=== PATIENT | female | born 1975 | race Caucasian/White ===

== ENCOUNTER 2020-02-24 14:33 | Outpatient (REF) | payer OTHER, SELFPAY | END 2020-02-24 14:34 | disposition home or self-care (01) | LOC: HO.LAB 14:33 | PROVIDERS: Visit Provider Nurse Practitioner Family | DX: Z13.89 Encounter for screening for other disorder (principal) ==

== ENCOUNTER 2020-02-24 16:47 | Outpatient (REF) | payer OTHER, SELFPAY | END 2020-02-24 16:48 | disposition home or self-care (01) | LOC: HO.LNP 16:47 | PROVIDERS: Visit Provider Nurse Practitioner Family | DX: N39.0 Urinary tract infection, site not specified (principal) | CPT/HCPCS: 87086; U0003 ==

== ENCOUNTER 2020-02-25 09:07 | Outpatient (REF) | payer OTHER, SELFPAY ==
[2020-02-25 11:35] LABS: Estimated Average Glucose 140 mg/dL; Hemoglobin A1c % 6.5 %
[2020-02-25 12:34] LABS: Alanine Aminotransferase 15 U/L (0-31); Anion Gap 17 (12-20); Aspartate Amino Transferase 14 U/L (5-31); Blood Urea Nitrogen 18 mg/dL (9-16); Calcium 8.9 mg/dL (8.4-10.2); Carbon Dioxide 22 mmol/L (22-29); Chloride 104 mmol/L (96-108); Cholesterol 224 mg/dL; Estimated Glomerular Filt Rate > 60; Glucose Fasting 112 mg/dL (60-99); HDL Cholesterol 41 mg/dL; LDL Cholesterol Calculated 154 mg/dl; Potassium 4.2 mmol/l (3.3-5.1); Sodium 139 mmol/L (135-145); Triglycerides 147 mg/dL
[2020-02-25 12:43] LABS: Vitamin D 25-OH Total 49.2 ng/mL (>30)
== END 2020-02-25 09:08 | disposition home or self-care (01) ==
LOC: HO.HMGCLDS 09:07
PROVIDERS: PCP Internal Medicine; Visit Provider Internal Medicine
DX: F33.8 Other recurrent depressive disorders (principal); I10 Essential (primary) hypertension; E55.9 Vitamin D deficiency, unspecified; F41.9 Anxiety disorder, unspecified; E78.1 Pure hyperglyceridemia; R73.01 Impaired fasting glucose
CPT/HCPCS: 80048; 80061; 82306; 83036; 84450; 84460

== ENCOUNTER 2020-06-03 09:27 | Outpatient (REF) | payer OTHER, SELFPAY ==
[2020-06-03 11:08] LABS: MANUAL DIFF FLAG NO
[2020-06-03 11:19] LABS: Basophils Percent Auto 0.4 % (0-2); Eosinophils Absolute Auto 0.6 X10*3/uL (0.0-0.4); Eosinophils Percent Auto 6.4 % (0-4); Hemoglobin 13.6 g/dl (12.0-16.0); Imm Gran Abs Auto 0.09 X10*3/uL (0.00-0.03); Imm Gran Pct Auto 0.9 % (0.0-0.4); Lymphocytes Absolute Auto 2.7 X10*3/uL (1.2-4.9); Lymphocytes Percent Auto 27.4 % (20-40); Mean Corpuscular HGB Conc 32.4 g/dl (31.0-35.0); Mean Corpuscular Hemoglobin 30.9 pg (27.0-33.0); Mean Corpuscular Volume 95.5 fL (80-98); Mean Platelet Volume 10.3 fL (9.4-12.3); Monocytes Absolute Auto 0.6 X10*3/uL (0.1-1.2); Monocytes Percent Auto 6.5 % (2-11); Neutrophils Absolute Auto 5.7 X10*3/uL (2.0-8.3); Neutrophils Percent Auto 58.4 % (45-73); Platelet Count 297 X10*3/uL (160-400); Red Cell Distribution Width 13.7 % (11.0-16.0); White Blood Count 9.8 X10*3/uL (4.8-10.8)
[2020-06-03 11:53] LABS: Alanine Aminotransferase 22 U/L (0-31); Albumin Level 4.1 g/dL (3.5-5.0); Alkaline Phosphatase 101 U/L (39-117); Anion Gap 14 (12-20); Aspartate Amino Transferase 19 U/L (5-31); Bilirubin Total 0.3 mg/dL (0.0-1.0); Blood Urea Nitrogen 17 mg/dL (9-16); Calcium 9.2 mg/dL (8.4-10.2); Carbon Dioxide 24 mmol/L (22-29); Chloride 104 mmol/L (96-108); Cholesterol 211 mg/dL; Estimated Glomerular Filt Rate > 60; Glucose Fasting 134 mg/dL (60-99); HDL Cholesterol 42 mg/dL; LDL Cholesterol Calculated 131 mg/dl; Potassium 4.1 mmol/L (3.3-5.1); Sodium 138 mmol/L (135-145); Total Protein 7.4 g/dL (6.5-8.0); Triglycerides 191 mg/dL
[2020-06-03 11:59] LABS: TSH reflex Free T4 2.24 uIU/mL (0.32-4.0); Vitamin D 25-OH Total 56.8 ng/mL (>30)
[2020-06-03 12:29] LABS: Folate 6.7 ng/mL (> or = 4.0); Vitamin B12 317 pg/mL (200-900)
== END 2020-06-03 09:28 | disposition home or self-care (01) ==
LOC: HO.HMGCLDS 09:27
PROVIDERS: PCP Internal Medicine; Visit Provider Internal Medicine
DX: E66.01 Morbid (severe) obesity due to excess calories (principal); M25.471 Effusion, right ankle; M25.472 Effusion, left ankle; M25.474 Effusion, right foot; M25.475 Effusion, left foot; R20.0 Anesthesia of skin; R20.2 Paresthesia of skin; K21.9 Gastro-esophageal reflux disease without esophagitis; R14.0 Abdominal distension (gaseous)
CPT/HCPCS: 36415; 80053; 80061; 82306; 82607; 82746; 84443; 85025

== ENCOUNTER 2020-06-18 10:45 | Outpatient (REF) | payer OTHER, SELFPAY ==
--- NOTE | ~2020-06-18 | XR_ITS ---
EXAMINATION: XR CERVICAL SPINE CLINICAL INFORMATION: Neck pain COMPARISON: None TECHNIQUE: 3 views of the cervical spine were obtained. FINDINGS: Bone alignment is normal. No fracture or dislocation is seen. There is mild degenerative spondylosis at C4-C5 and C6-C7. Disc spaces are normal. Prevertebral soft tissues are normal. 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 XR/XR cervical spine 2V IMPRESSION: Mild degenerative spondylosis at C4-C5 and C6-C7.
== END 2020-06-18 10:46 | disposition home or self-care (01) ==
LOC: HO.HMGCX 10:45
PROVIDERS: PCP Internal Medicine; Visit Provider Internal Medicine
DX: M54.2 Cervicalgia (principal)
CPT/HCPCS: 72040

== ENCOUNTER → 2020-06-23 09:38 | Outpatient (BNVA) | payer OTHER, SELFPAY | PROVIDERS: PCP Internal Medicine; Visit Provider Surgery Vascular Surgery | DX: I83.11 Varicose veins of right lower extremity with inflammation (principal) | CPT/HCPCS: 99202 ==

== ENCOUNTER → 2020-06-25 13:17 | Outpatient (BNVA) | payer OTHER, SELFPAY | PROVIDERS: PCP Internal Medicine; Visit Provider Physician Assistant ==

== ENCOUNTER 2020-07-07 07:56 | Outpatient (REF) | payer OTHER, SELFPAY ==
--- NOTE | ~2020-07-07 | US_ITS ---
EXAMINATION: RIGHT and LEFT LOWER EXTREMITY VENOUS ULTRASOUND (Reflux Exam) CLINICAL INDICATION: leg pain and varicose veins. COMPARISON: None. TECHNIQUE: Color flow triplex imaging and compression Doppler was performed to evaluate both the deep and the superficial systems bilaterally. To evaluate the superficial system, the examination was performed in the upright position. Color-flow Doppler ultrasound and compression ultrasound were utilized. In addition, maneuvers were utilized to demonstrate reflux. FINDINGS: 1. DEEP VENOUS ULTRASOUND OF THE RIGHT LOWER EXTREMITY: Respiratory variation, normal compression and augmented flow are noted in the right common femoral vein as well as the right popliteal vein and there is no evidence of deep venous thrombosis at these locations. There is no evidence of reflux in the deep system in either the common femoral vein or the popliteal vein. There is no evidence of a Juarez's cyst. 2. SUPERFICIAL ULTRASOUND WITH DOPPLER OF RIGHT LOWER EXTREMITY: The right great saphenous vein at the saphenofemoral junction measures 8 mm, at the mid thigh 7 mm, iqmdl-dfq-uhgz 4 mm, utgdl-wpc-pzqz 3 mm, at mid calf 3 mm and at the ankle measures 3 mm. There is no reflux demonstrated in the right great saphenous vein. The right small saphenous vein measures 3 mm and shows no reflux. There is an accessory medial greater saphenous vein that measures 6 mm and does not demonstrate reflux. There are small perforators in the calf and small varicosities in the thigh that measure between 1 and 3 mm and do not demonstrate reflux. 3. DEEP VENOUS ULTRASOUND OF THE LEFT LOWER EXTREMITY: Respiratory variation, normal compression and augmented flow are noted in the left common femoral vein as well as the left popliteal vein and there is no evidence of deep venous thrombosis at these locations. There is no evidence of reflux in the deep system in either the common femoral vein or the popliteal vein. . There is no evidence of a Juarez's cyst. 4. SUPERFICIAL ULTRASOUND WITH DOPPLER OF LEFT LOWER EXTREMITY: Left great saphenous vein at the saphenofemoral junction measures 8 mm, at the mid thigh 4 mm, owvpa-exd-yeqm 5 mm, pzbdo-cyj-cfhi 2 mm, at mid calf 2 mm and at the ankle measures 2 mm. There is no reflux demonstrated in the left great saphenous vein. The left small saphenous vein measures 3 mm and shows no reflux. Recent accessory medial greater saphenous vein that measures 6 mm and does not demonstrate reflux. There is a varicosity in the mid thigh that measures 1 mm and demonstrates 2.7 second reflux. There are larger varicosities in the proximal thigh measuring 3 mm and mid calf measuring 4 mm that do not demonstrate reflux. US/US venous duplex LE BI IMPRESSION: 1. No evidence of reflux or thrombus in the common femoral veins or popliteal veins bilaterally. 2. The saphenous systems are competent bilaterally. Small varicosity in the left mid thigh with reflux.
== END 2020-07-07 07:57 | disposition home or self-care (01) ==
LOC: HO.US 07:56
PROVIDERS: PCP Internal Medicine; Visit Provider Surgery Vascular Surgery
DX: I83.893 Varicose veins of bilateral lower extremities with other complications (principal); I83.813 Varicose veins of bilateral lower extremities with pain
CPT/HCPCS: 87086; 87088; 87186; 93970

== ENCOUNTER 2020-07-20 08:50 | Outpatient (REF) | payer OTHER, SELFPAY ==
[2020-07-22 11:32] LABS: CT PCR NOT DETECTED (Not Detect.); NG PCR NOT DETECTED (Not Detect.)
[2020-07-22 11:34] LABS: BV Int Neg Control Negative (Negative); BV Int Pos Control Positive (Positive)
[2020-07-23 22:17] LABS: HPV mRNA E6/E7 rflx Not Detected (Not Detected)
== END 2020-07-20 08:51 | disposition home or self-care (01) ==
LOC: HO.LAB 08:50
PROVIDERS: PCP Internal Medicine; Visit Provider Obstetrics & Gynecology
DX: Z01.419 Encounter for gynecological examination (general) (routine) without abnormal findings (principal); Z11.51 Encounter for screening for human papillomavirus (HPV); Z11.3 Encounter for screening for infections with a predominantly sexual mode of transmission; B96.89 Other specified bacterial agents as the cause of diseases classified elsewhere; N76.0 Acute vaginitis; B37.3 Candidiasis of vulva and vagina
CPT/HCPCS: 87086; 87480; 87491; 87510; 87591; 87624; 87660; 88142

== ENCOUNTER → 2020-07-21 14:13 | Outpatient (BNVA) | payer OTHER, SELFPAY | PROVIDERS: PCP Internal Medicine; Visit Provider Surgery Vascular Surgery | DX: I83.11 Varicose veins of right lower extremity with inflammation (principal) | CPT/HCPCS: 99212 ==

== ENCOUNTER 2020-08-12 08:51 | Outpatient (REF) | payer OTHER, SELFPAY ==
--- NOTE | 2020-08-12 08:54 | EMG_ITS ---
This is a 44-year-old woman, who has had symptoms in her right hand for more than 1 year and 6 months to 9 months in her left hand pain, numbness, and tingling, that is worse at night. She also has a history of diabetes. PHYSICAL EXAMINATION: On examination, she is alert and oriented with normal intellectual functions. Cranial nerves II through XII are normal. Muscle tone and strength are normal in all 4 extremities. No Tinel or Phalen sign. IMPRESSION: Carpal tunnel syndrome. Nerve conduction EMG study: Moderate carpal tunnel syndrome on the right and mild carpal tunnel syndrome on the left. Normal EMG in the right C5 through T1 innervated muscles. MD DEANA Hernandez/VAHE / [id number]
== END 2020-08-12 08:52 | disposition home or self-care (01) ==
LOC: HO.NEURO 08:51
PROVIDERS: PCP Internal Medicine; Visit Provider Internal Medicine
DX: R20.0 Anesthesia of skin (principal); R20.2 Paresthesia of skin
CPT/HCPCS: 95885; 95913

== ENCOUNTER → 2020-11-11 09:01 | Outpatient (BNVA) | payer OTHER, SELFPAY | PROVIDERS: PCP Internal Medicine; Visit Provider Dietitian, Registered | DX: E11.9 Type 2 diabetes mellitus without complications (principal) | CPT/HCPCS: 97802 ==

== ENCOUNTER 2020-11-21 09:27 | Outpatient (REF) | payer OTHER, SELFPAY ==
[2020-11-21 11:43] LABS: Estimated Average Glucose 146 mg/dL; Hemoglobin A1c % 6.7 %
[2020-11-21 12:03] LABS: Alanine Aminotransferase 12 U/L (0-31); Aspartate Amino Transferase 9 U/L (5-31)
[2020-11-21 12:13] LABS: Creatinine Urine 77.46 mg/dL; Microalbum/Creatinine Ratio Ur 16.7 ug/mg cr
[2020-11-23 14:52] LABS: Transglutaminase IgA 1 U/mL
[2020-11-26 12:06] LABS: Endomysial IgA Antibody Negative (Negative)
== END 2020-11-21 09:28 | disposition home or self-care (01) ==
LOC: HO.HMGCLDS 09:27
PROVIDERS: PCP Internal Medicine; Visit Provider Physician Assistant
DX: E11.9 Type 2 diabetes mellitus without complications (principal); E78.5 Hyperlipidemia, unspecified; R19.7 Diarrhea, unspecified; B96.20 Unspecified Escherichia coli [E. coli] as the cause of diseases classified elsewhere; N39.0 Urinary tract infection, site not specified
CPT/HCPCS: 36415; 82043; 83036; 83516; 84450; 84460; 86255; 86256; 87086

== ENCOUNTER 2020-12-09 11:27 | Outpatient (REF) | payer OTHER, SELFPAY | END 2020-12-09 11:28 | disposition home or self-care (01) | LOC: HO.LNP 11:27 | PROVIDERS: Visit Provider Internal Medicine | DX: Z20.822 Contact with and (suspected) exposure to COVID-19 (principal) | CPT/HCPCS: U0003; U0005 ==

== ENCOUNTER 2020-12-10 11:18 | Outpatient (REF) | payer OTHER, SELFPAY | END 2020-12-10 11:19 | disposition home or self-care (01) | LOC: HO.LNP 11:18 | PROVIDERS: Visit Provider Internal Medicine | DX: Z13.89 Encounter for screening for other disorder (principal) ==

== ENCOUNTER 2020-12-29 17:24 | Outpatient (REF) | payer OTHER, SELFPAY ==
[2020-12-29 17:47] LABS: Appearance Urine CLOUDY; Color Urine YELLOW; Glucose Urine UA NEG (NEG); Leukocyte Esterase Urine 1+ (NEG); Nitrite Urine NEG (NEG); Specific Gravity - Urine 1.015 (1.005-1.025); UACC Culture Trigger YES; Urine Blood NEG (NEG); Urine Ketones NEG (NEG); Urine Protein TRACE MG/DL (NEG-TRACE)
[2020-12-29 18:49] LABS: Bacteria Urine 4+ /LPF; RBC Urine 0 /HPF (0); Squamous Epithelial Cell Urine 1+ /LPF
== END 2020-12-29 17:25 | disposition home or self-care (01) ==
LOC: HO.LNP 17:24
PROVIDERS: Visit Provider Internal Medicine
DX: R30.0 Dysuria (principal); N31.9 Neuromuscular dysfunction of bladder, unspecified
CPT/HCPCS: 81001; 87086; 87088; 87186

== ENCOUNTER → 2021-01-01 09:11 | Outpatient (BNVA) | payer OTHER, SELFPAY | PROVIDERS: PCP Internal Medicine; Visit Provider Surgery | DX: L72.11 Pilar cyst (principal) | CPT/HCPCS: 99202 ==

== ENCOUNTER → 2021-01-05 09:06 | Outpatient (BNVA) | payer OTHER, SELFPAY | PROVIDERS: PCP Internal Medicine; Visit Provider Dietitian, Registered | DX: E11.9 Type 2 diabetes mellitus without complications (principal); Z71.3 Dietary counseling and surveillance | CPT/HCPCS: 97803 ==

== ENCOUNTER 2021-01-12 06:21 | Outpatient (REF) | payer OTHER, SELFPAY ==
[2021-01-12 07:59] VITALS: BMI 42.0
--- NOTE | 2021-01-12 08:40 | P.OP_ITS ---
Operative Note Operative Note Date of Service: 01/12/21 Narrative: Preoperative diagnosis: Pilar cyst, dermal nevus Postoperative diagnosis: Same Procedure: Excision of Pilar cyst, excision of dermal nevus Surgeon: Nadir Hooper MD Digital Engineer: Sera Jacome PA-C Anesthesia: Local Indications for procedure: 45-year-old female patient presenting with a Pilar cyst in the posterior left scalp with an overlying dermal nevus. Patient has requested excision of both lesions. Operative findings: 2 cm Pilar cyst and overlying dermal nevus measuring approximately 0.5 cm. Specimen: Dermal nevus, Pilar cyst Estimated blood loss: 10 mL Complications: None Procedure details: Patient was brought to the minor surgery suite placed in a sitting position. The site of surgery was confirmed by the patient in the posterior left scalp. After assuring informed consent the scalp was prepped with Betadine and draped in a sterile fashion. Local anesthesia consisting of 1% lidocaine with epinephrine was then infiltrated around both lesions. An elliptical incision was then made around the dermal nevus and continued down into the Pilar cyst. Blunt dissection was used to excise the Pilar cyst from the surrounding subcutaneous tissue. The dermal nevus was also excised using sharp dissection. Pressure was held to maintain hemostasis. Skin was then closed using 2 0 nylon suture. Good hemostasis was obtained with the sutures. Patient tolerated the procedure well. She was discharged to home in stable condition.
== END 2021-01-12 08:45 | disposition home or self-care (01) ==
LOC: HO.MS 06:21
PROVIDERS: PCP Internal Medicine; Visit Provider Surgery
PROC: (CPT 11422; principal; 2021-01-12 08:00)
DX: L72.11 Pilar cyst (principal); D23.4 Other benign neoplasm of skin of scalp and neck
CPT/HCPCS: 11422; 11420; 88304; 88305

== ENCOUNTER → 2021-01-19 08:40 | Outpatient (BNVA) | payer OTHER, SELFPAY | PROVIDERS: PCP Internal Medicine; Visit Provider Advanced Practice Midwife ==

== ENCOUNTER → 2021-01-21 14:59 | Outpatient (BNVA) | payer OTHER, SELFPAY | PROVIDERS: PCP Internal Medicine; Visit Provider Surgery | DX: Z48.817 Encounter for surgical aftercare following surgery on the skin and subcutaneous tissue (principal); Z87.2 Personal history of diseases of the skin and subcutaneous tissue | CPT/HCPCS: 99212 ==

== ENCOUNTER → 2021-02-02 08:50 | Outpatient (BNVA) | payer OTHER, SELFPAY | PROVIDERS: PCP Internal Medicine; Visit Provider Orthopaedic Surgery | DX: G56.03 Carpal tunnel syndrome, bilateral upper limbs (principal) | CPT/HCPCS: 99202 ==

== ENCOUNTER → 2021-02-09 07:58 | Outpatient (BNVA) | payer OTHER, SELFPAY | PROVIDERS: PCP Internal Medicine; Referring Provider Internal Medicine; Visit Provider Physician Assistant Surgical ==

== ENCOUNTER 2021-02-15 14:47 | Outpatient (REF) | payer OTHER, SELFPAY ==
[2021-02-16 03:55] LABS: CT PCR NOT DETECTED (Not Detect.); NG PCR NOT DETECTED (Not Detect.)
[2021-02-16 11:12] LABS: BV Int Neg Control Negative (Negative); BV Int Pos Control Positive (Positive)
== END 2021-02-15 14:48 | disposition home or self-care (01) ==
LOC: HO.LAB 14:47
PROVIDERS: PCP Internal Medicine; Visit Provider Advanced Practice Midwife
DX: Z30.431 Encounter for routine checking of intrauterine contraceptive device (principal); R10.2 Pelvic and perineal pain; R82.90 Unspecified abnormal findings in urine
CPT/HCPCS: 81003; 87086; 87088; 87186; 87480; 87491; 87510; 87591; 87660; 99212

== ENCOUNTER 2021-02-23 08:37 | Outpatient (REF) | payer OTHER, SELFPAY ==
--- NOTE | ~2021-02-23 | US_ITS ---
EXAMINATION: US PELVIS CLINICAL INFORMATION: Check IUD placement. Lower abdominal pain. COMPARISON: None TECHNIQUE: Ultrasound of the pelvis is performed using both transabdominal and transvaginal transducers along with Doppler. Transvaginal imaging is performed due to inadequate visualization transabdominally. FINDINGS: The uterus is anteverted and measures 9.1 x 5.2 x 6.5 cm in dimension. There are multiple echogenic densities seen centrally in the uterus in the endometrium questionable for fragmented IUD. Possible air in the endometrium could also be considered. Follow-up x-ray or CT scan for better evaluation should be considered. There are hypoechoic lesions in the posterior uterine body suggestive of intramural fibroids measuring 2.2 x 2.1 x 2.3 cm and 3 x 2.1 x 2.5 cm. The ovaries are seen transabdominally only. Ovaries are normal-appearing. The right ovary measures 2.8 x 1.1 x 2.5 cm and the left ovary measures 2.5 x 1.3 x 2 cm. There is no fluid seen in the pelvis. US/US pelvic and transvaginal IMPRESSION: Multiple echogenic densities in the uterus questionable for broken IUD. Some of these findings may be related to air in the endometrial cavity. Follow-up x-ray or CT scan should be considered for further evaluation. 2 posterior uterine body intramural fibroids.
== END 2021-02-23 08:38 | disposition home or self-care (01) ==
LOC: HO.HMGCX 08:37
PROVIDERS: PCP Internal Medicine; Visit Provider Advanced Practice Midwife
DX: Z30.431 Encounter for routine checking of intrauterine contraceptive device (principal); R10.2 Pelvic and perineal pain
CPT/HCPCS: 76830; 76856

== ENCOUNTER 2021-03-01 10:08 | Day surgery (SDC) | payer OTHER, SELFPAY ==
[2021-03-01 10:46] VITALS: BP 189/84; PULSE 90; RESP 16; TEMP 36.3; O2SAT 96; BMI 42.0
--- NOTE | 2021-03-01 12:02 | MHC.SHP ---
Pre-Procedural Eval Section A Date of Service: 03/01/21 The patient is an INPATIENT: No Changes since office visit: No Cold of Flu in the past 2 weeks, No New Medical Problems, No Changes in Medication and No Patient answered all questions The History & Physical has been completed within 30 days and I have reviewed it.: Yes Section B Chief Complaint: carpal tunnel syndrome Allergies: Allergies Allergy/AdvReac Type Severity Reaction Status Date / Time amoxicillin [From Augmentin] Allergy Unknown hives Verified 03/01/21 11:02 clavulanic acid Allergy Unknown hives Verified 03/01/21 11:02 [From Augmentin] sulfamethoxazole Allergy Unknown unkown Verified 03/01/21 11:02 Antihistamines Allergy Unknown rapid Uncoded 01/21/21 15:06 heart rate Plan I have reviewed the history and physical and performed a pertinent physical examination on my patient. No changes have occurred unless specified.
--- NOTE | 2021-03-01 12:03 | W.PM.OPN ---
Operative Note Operative Note Date of Service: 03/01/21 Narrative: Preop diagnosis: 1. Right Carpal tunnel syndrome Postop diagnosis: same Procedure: 1. Right Carpal tunnel release Surgeon: Kiley Braxton MD Anesthesia: local block using 1% lidocaine with epinephrine Findings: Thickened transverse carpal ligament. EBL: Less than 5 mL Specimens: None Complications: None Disposition: Brought to recovery room in stable condition Plan: Follow-up for 7-10 days for wound check and suture removal Indications: The patient is 45 years old, with right carpal tunnel syndrome that has been unresponsive to nonoperative management. The risks and benefits of operative treatment including but not limited to risk of damage to blood vessels, nerves, tendons, infection, persistent pain, persistent symptoms, or possible need for additional surgery were discussed with the patient and the patient wishes to proceed with surgery. Procedure: Once consent was obtained a local block was performed using a combination of 1% lidocaine with epinephrine. The patient was then brought back to the operating suite and placed on the operative table in supine position. A tourniquet was applied to the proximal aspect of the upper extremity and the limb was prepped and draped in a standard surgical fashion. Once assured that we had a good block, a 1.5 cm longitudinal incision was made centered over the carpal tunnel. The incision was made through the skin to the subcutaneous tissues using a #15 blade. Dissection was made down to the level of the transverse carpal ligament with care being taken to protect the palmar cutaneous nerve. Once the transverse carpal ligament was clearly visualized, a longitudinal incision was made in the transverse carpal ligament 1st using a #15 blade, then using tenotomy scissors under direct visualization. Care was taken to look for and protect the motor branch of the median nerve when seen in this area. Once satisfied with our carpal tunnel release the wound was copiously irrigated with normal saline and hemostasis was obtained with a brief period of local pressure. The skin edges were reapproximated with some 5.0 nylon suture material and a sterile dressing was applied. The patient appears to have tolerated the procedure well and with no complications. All digits were well vascularized at the conclusion of the case.
[2021-03-01 12:40] VITALS: BP 157/82; PULSE 93; RESP 18; TEMP 36.7; O2SAT 95
== END 2021-03-01 13:14 | disposition home or self-care (01) ==
PROVIDERS: PCP Internal Medicine; Visit Provider Orthopaedic Surgery
PROC: (CPT 64721; principal; 2021-03-01 11:10)
DX: G56.01 Carpal tunnel syndrome, right upper limb (principal); E11.9 Type 2 diabetes mellitus without complications; J45.20 Mild intermittent asthma, uncomplicated; E66.01 Morbid (severe) obesity due to excess calories; Z68.41 Body mass index [BMI] 40.0-44.9, adult; Q05.9 Spina bifida, unspecified; Z98.2 Presence of cerebrospinal fluid drainage device; Z86.69 Personal history of other diseases of the nervous system and sense organs; Z79.84 Long term (current) use of oral hypoglycemic drugs; Z88.0 Allergy status to penicillin; Z88.1 Allergy status to other antibiotic agents; Z88.2 Allergy status to sulfonamides; Z88.8 Allergy status to other drugs, medicaments and biological substances
CPT/HCPCS: 64721

== ENCOUNTER → 2021-03-03 11:20 | Outpatient (BNVA) | payer OTHER, SELFPAY | PROVIDERS: PCP Internal Medicine; Visit Provider Advanced Practice Midwife ==

== ENCOUNTER 2021-03-04 14:45 | Outpatient (REF) | payer OTHER, SELFPAY ==
--- NOTE | ~2021-03-04 | XR_ITS ---
EXAMINATION: XR ABDOMEN KUB CLINICAL INDICATION: IUD placement COMPARISON: Ultrasound of February 23, 2021 TECHNIQUE: AP view of the abdomen. FINDINGS: The bowel gas pattern is normal with no evidence of ileus or obstruction. No unusual soft tissue calcifications are noted. The bones are unremarkable. An IUD is seen overlying the left sacrum and appears intact. I cannot tell its positioning in relation to the uterus on this plain film study. A catheter is seen overlying the abdomen and part of the chest. XR/XR KUB IMPRESSION: IUD seen within the upper left pelvis. Its relationship to the uterus cannot be determined on this plain film study.
== END 2021-03-04 14:46 | disposition home or self-care (01) ==
LOC: HO.HMGCX 14:45
PROVIDERS: PCP Internal Medicine; Visit Provider Advanced Practice Midwife
DX: Z30.431 Encounter for routine checking of intrauterine contraceptive device (principal)
CPT/HCPCS: 74018

== ENCOUNTER → 2021-03-05 09:07 | Outpatient (BNVA) | payer OTHER, SELFPAY | PROVIDERS: PCP Internal Medicine; Visit Provider Dietitian, Registered | DX: E11.9 Type 2 diabetes mellitus without complications (principal); E66.9 Obesity, unspecified | CPT/HCPCS: 97803 ==

== ENCOUNTER → 2021-03-16 08:56 | Outpatient (BNVA) | payer OTHER, SELFPAY | PROVIDERS: PCP Internal Medicine; Visit Provider Orthopaedic Surgery | DX: G56.03 Carpal tunnel syndrome, bilateral upper limbs (principal) | CPT/HCPCS: 99212 ==

== ENCOUNTER → 2021-03-17 08:03 | Outpatient (BNVA) | payer OTHER, SELFPAY | PROVIDERS: PCP Internal Medicine; Visit Provider Surgery ==

== ENCOUNTER 2021-03-19 10:44 | Outpatient (REF) | payer OTHER, SELFPAY ==
--- NOTE | ~2021-03-19 | XR_ITS ---
EXAMINATION: XR CHEST CLINICAL INFORMATION: Obesity COMPARISON: Previous chest x-ray June 2006 TECHNIQUE: 2 views of the chest were obtained. FINDINGS: The cardiac and mediastinal contours are stable. The lungs are clear. There is no pleural effusion or pneumothorax. There are mild degenerative changes of the spine. There is a shunt catheter projecting over the anterior chest that appears unchanged from previous chest x-ray. XR/XR chest 2V IMPRESSION: No evidence for acute disease in the chest. Shunt catheter projects over the anterior chest and appears unchanged from 2017 exam.
--- NOTE | 2021-03-19 10:54 | ECG_ITS ---
Test Reason : morbid obesity Blood Pressure : / mmHG Vent. Rate : 087 BPM Atrial Rate : 087 BPM P-R Int : 176 ms QRS Dur : 080 ms QT Int : 362 ms P-R-T Axes : 047 073 060 degrees QTc Int : 435 ms Normal sinus rhythm Normal ECG No previous ECGs available Referred By: Shakeel Plascencia Electronically Signed By:EMILIANO NORTH
[2021-03-19 11:00] LABS: MANUAL DIFF FLAG NO
[2021-03-19 12:05] LABS: Basophils Percent Auto 0.3 % (0-2); Eosinophils Absolute Auto 0.5 X10*3/uL (0.0-0.4); Eosinophils Percent Auto 4.4 % (0-4); Hematocrit 40.3 % (37.0-47.0); Imm Gran Abs Auto 0.08 X10*3/uL (0.00-0.03); Imm Gran Pct Auto 0.8 % (0.0-0.4); Lymphocytes Absolute Auto 2.3 X10*3/uL (1.2-4.9); Lymphocytes Percent Auto 21.8 % (20-40); Mean Corpuscular HGB Conc 32.3 g/dl (31.0-35.0); Mean Corpuscular Hemoglobin 30.3 pg (27.0-33.0); Mean Corpuscular Volume 93.9 fL (80.0-98.0); Mean Platelet Volume 10.2 fL (9.4-12.3); Monocytes Absolute Auto 0.7 X10*3/uL (0.1-1.2); Neutrophils Absolute Auto 6.9 x10*3/uL (2.0-8.3); Neutrophils Percent Auto 65.7 % (45-73); Platelet Count 275 X10*3/uL (160-400); Red Blood Count 4.29 X10*6/uL (4.20-5.50); Red Cell Distribution Width 14.1 % (11.0-16.0); White Blood Count 10.5 X10*3/uL (4.8-10.8)
[2021-03-19 12:14] LABS: Estimated Average Glucose 148 mg/dL; Hemoglobin A1c % 6.8 %
[2021-03-19 12:24] LABS: Appearance Urine CLEAR; Color Urine YELLOW; Glucose Urine UA NEG (NEG); Leukocyte Esterase Urine NEG (NEG); Nitrite Urine NEG (NEG); Urine Blood NEG (NEG); Urine Ketones NEG (NEG); Urine Protein NEG (NEG-TRACE)
[2021-03-19 12:35] LABS: Alanine Aminotransferase 18 U/L (0-31); Albumin Level 4.1 g/dL (3.5-5.0); Alkaline Phosphatase 84 U/L (39-117); Anion Gap 16 (12-20); Aspartate Amino Transferase 14 U/L (5-31); Bilirubin Total 0.3 mg/dL (0.0-1.0); Blood Urea Nitrogen 15 mg/dL (9-16); C Reactive Protein 4.07 mg/dL (< or = 0.50); Calcium 9.3 mg/dL (8.4-10.2); Carbon Dioxide 22 mmol/L (22-29); Chloride 105 mmol/L (96-108); Cholesterol 216 mg/dL; Estimated Glomerular Filt Rate > 60; Glucose Fasting 144 mg/dL (60-99); HDL Cholesterol 44 mg/dL; Iron 65 mcg/dL (30-160); LDL Cholesterol Calculated 139 mg/dl; Percent Iron Saturation 19 % (15-50); Potassium 4.4 mmol/L (3.3-5.1); Sodium 139 mmol/L (135-145); Total Iron Binding Capacity 339 mcg/dL (228-428); Total Protein 7.3 g/dL (6.5-8.0); Triglycerides 166 mg/dL; Unsaturated Iron Binding 274 ug/dL
[2021-03-19 12:54] LABS: Ferritin 63 ng/mL (10-250); Insulin 43 uU/mL (2-29); TSH reflex Free T4 2.66 uIU/mL (0.32-4.0)
[2021-03-19 12:57] LABS: Vitamin D 25-OH Total 25.8 ng/mL (>30)
[2021-03-19 13:19] LABS: Creatinine Urine 92.47 mg/dL; Microalbum/Creatinine Ratio Ur 12.9 ug/mg cr
[2021-03-19 13:20] LABS: Folate 9.3 ng/mL (> or = 4.0); Vitamin B12 190 pg/mL (200-900)
[2021-03-22 14:42] LABS: Calcium (PTHI) 9.4 mg/dL (8.6-10.2); PTHI 33 pg/mL (14-64)
[2021-03-23 18:17] LABS: Vitamin A 45 mcg/dL (38-98)
[2021-03-24 01:26] LABS: Zinc 75 mcg/dL (60-130)
[2021-03-24 11:31] LABS: Vitamin B1 <6 nmol/L (8-30)
== END 2021-03-19 10:45 | disposition home or self-care (01) ==
LOC: HO.XRAY 10:44
PROVIDERS: Absent Provider Internal Medicine; PCP Internal Medicine; Visit Provider Surgery
DX: Z00.01 Encounter for general adult medical examination with abnormal findings (principal); N31.9 Neuromuscular dysfunction of bladder, unspecified; R30.0 Dysuria; E66.01 Morbid (severe) obesity due to excess calories; E78.1 Pure hyperglyceridemia; E11.9 Type 2 diabetes mellitus without complications; K21.9 Gastro-esophageal reflux disease without esophagitis; I10 Essential (primary) hypertension
CPT/HCPCS: 36415; 71046; 80053; 80061; 81003; 82043; 82306; 82607; 82728; 82746; 83036; 83525; 83540; 83970; 84425; 84443; 84590; 84630; 85025; 86140; 93005

== ENCOUNTER 2021-03-29 14:52 | Outpatient (REF) | payer OTHER, SELFPAY ==
[2021-03-31 14:10] LABS: H Pylori Breath Test Negative (Negative)
== END 2021-03-29 14:53 | disposition home or self-care (01) ==
LOC: CF 14:52
PROVIDERS: Visit Provider Surgery
DX: E11.9 Type 2 diabetes mellitus without complications (principal); E66.01 Morbid (severe) obesity due to excess calories; E78.1 Pure hyperglyceridemia; I10 Essential (primary) hypertension; K21.9 Gastro-esophageal reflux disease without esophagitis
CPT/HCPCS: 36415; 83013; 99211

== ENCOUNTER 2021-04-02 | Outpatient (REF) | payer OTHER, SELFPAY | END 2021-04-02 00:01 | LOC: HO.MRI | PROVIDERS: Visit Provider Psychiatry & Neurology Neurology | DX: E11.9 Type 2 diabetes mellitus without complications (principal); R10.2 Pelvic and perineal pain; E66.01 Morbid (severe) obesity due to excess calories; Z71.3 Dietary counseling and surveillance; Z30.432 Encounter for removal of intrauterine contraceptive device | CPT/HCPCS: 58301; 81025; 97803 ==

== ENCOUNTER 2021-04-02 14:01 | Outpatient (REF) | payer OTHER, SELFPAY | END 2021-04-02 14:02 | disposition home or self-care (01) | LOC: HO.HMGCLDS 14:01 | PROVIDERS: PCP Internal Medicine; Visit Provider Internal Medicine | DX: Z20.822 Contact with and (suspected) exposure to COVID-19 (principal) | CPT/HCPCS: C9803; U0003; U0005 ==

== ENCOUNTER 2021-04-05 08:58 | Day surgery (SDC) | payer OTHER, SELFPAY ==
--- NOTE | 2021-04-05 07:58 | MHC.SHP ---
Pre-Procedural Eval Section A Date of Service: 04/05/21 The patient is an INPATIENT: No Changes since office visit: No Cold of Flu in the past 2 weeks, No New Medical Problems, No Changes in Medication and No Patient answered all questions The History & Physical has been completed within 30 days and I have reviewed it.: Yes Section B Chief Complaint: carpal tunnel syndrome Allergies: Allergies Allergy/AdvReac Type Severity Reaction Status Date / Time amoxicillin [From Augmentin] Allergy Unknown hives Verified 04/02/21 11:25 clavulanic acid Allergy Unknown hives Verified 04/02/21 11:25 [From Augmentin] sulfamethoxazole Allergy Unknown unkown Verified 04/02/21 11:25 Antihistamines Allergy Unknown rapid Uncoded 03/17/21 16:20 heart rate Plan I have reviewed the history and physical and performed a pertinent physical examination on my patient. No changes have occurred unless specified.
[2021-04-05 09:23] VITALS: BMI 48.2
[2021-04-05 09:31] VITALS: BP 178/84; PULSE 98; RESP 16; TEMP 36.6; O2SAT 95
--- NOTE | 2021-04-05 11:21 | W.PM.OPN ---
Operative Note Operative Note Date of Service: 04/05/21 Narrative: Preop diagnosis: 1. left Carpal tunnel syndrome Postop diagnosis: same Procedure: 1. left Carpal tunnel release Surgeon: Kiley Braxton MD Anesthesia: local block using 1% lidocaine with epinephrine Findings: Thickened transverse carpal ligament. EBL: Less than 5 mL Specimens: None Complications: None Disposition: Brought to recovery room in stable condition Plan: Follow-up for 10-14 days for wound check and suture removal Indications: The patient is 45 years old, with left carpal tunnel syndrome that has been unresponsive to nonoperative management. The risks and benefits of operative treatment including but not limited to risk of damage to blood vessels, nerves, tendons, infection, persistent pain, persistent symptoms, or possible need for additional surgery were discussed with the patient and the patient wishes to proceed with surgery. Procedure: Once consent was obtained a local block was performed using a combination of 1% lidocaine with epinephrine. The patient was then brought back to the operating suite and placed on the operative table in supine position. A tourniquet was applied to the proximal aspect of the left upper extremity and the limb was prepped and draped in a standard surgical fashion. Once assured that we had a good block, a 1.5 cm longitudinal incision was made centered over the carpal tunnel. The incision was made through the skin to the subcutaneous tissues using a #15 blade. Dissection was made down to the level of the transverse carpal ligament with care being taken to protect the palmar cutaneous nerve. Once the transverse carpal ligament was clearly visualized, a longitudinal incision was made in the transverse carpal ligament 1st using a #15 blade, then using tenotomy scissors under direct visualization. Care was taken to look for and protect the motor branch of the median nerve when seen in this area. Once satisfied with our carpal tunnel release the wound was copiously irrigated with normal saline and hemostasis was obtained with a brief period of local pressure. The skin edges were reapproximated with some 5.0 nylon suture material and a sterile dressing was applied. The patient appears to have tolerated the procedure well and with no complications. All digits were well vascularized at the conclusion of the case.
[2021-04-05 12:02] VITALS: BP 178/81; PULSE 94; RESP 20; TEMP 36.8; O2SAT 96
== END 2021-04-05 12:18 | disposition home or self-care (01) ==
PROVIDERS: PCP Internal Medicine; Visit Provider Orthopaedic Surgery
PROC: (CPT 64721; principal; 2021-04-05 11:10)
DX: G56.02 Carpal tunnel syndrome, left upper limb (principal); M54.50 Low back pain, unspecified; G89.29 Other chronic pain; E11.9 Type 2 diabetes mellitus without complications; Z79.84 Long term (current) use of oral hypoglycemic drugs; J45.20 Mild intermittent asthma, uncomplicated; E66.01 Morbid (severe) obesity due to excess calories; Z68.41 Body mass index [BMI] 40.0-44.9, adult; Q05.9 Spina bifida, unspecified; Z88.0 Allergy status to penicillin; Z88.1 Allergy status to other antibiotic agents; Z88.2 Allergy status to sulfonamides
CPT/HCPCS: 64721

== ENCOUNTER 2021-04-07 14:34 | Outpatient (REF) | payer OTHER, SELFPAY ==
--- NOTE | ~2021-04-07 | MR_ITS ---
EXAMINATION: MR LUMBAR SPINE WITHOUT CONTRAST CLINICAL INFORMATION: Tethered cord syndrome. Reported remote history of surgery. Spina bifida. Bilateral lower extremity radiculopathy. COMPARISON: None TECHNIQUE: MRI of the lumbar spine was obtained using routine sequences without contrast. Limited study with motion artifacts. FINDINGS: VERTEBRAL BODIES AND PARASPINAL STRUCTURES: Chronic fatty marrow degenerative endplate changes and disc space narrowing noted at the lower thoracic levels. There are no compression fractures. Mild retrosubluxation evident at the L5-S1 level. There is a bony dysraphic defect in the sacrum with chronic postoperative changes. No soft tissue fluid collections are seen. The lung bases are clear. There are mild degenerative changes of the sacroiliac joints. CONUS MEDULLARIS AND CAUDA EQUINA: The cord is abnormally low-lying in position with the neural placode extending inferiorly to the upper L5 level. No syrinx or cord signal abnormality is seen. The neural placode is draped over an intradural extramedullary round lesion which is nearly isointense signal to CSF, measuring 1.5 x 2.6 x 1.9 cm. The cauda equina nerve roots are displaced by the intradural lesion centered at the L5 level. SPINAL LEVELS: T10-T11: Moderate loss of disc height and shallow left paracentral disc protrusion mildly impressing upon and flattening the ventral cord without intramedullary signal change. No central canal stenosis or foraminal narrowing. T11-T12: Moderate loss of disc height with bulky anterior endplate spurring. Small left subarticular zone disc protrusion. No central canal stenosis or foraminal narrowing. T12-L1: Moderate disc space narrowing and anterior endplate spurring with a mild disc bulge. Patent central canal and foramina. L1-L2 and L2-L3: No disc pathology, central canal stenosis, or foraminal narrowing. Well-hydrated discs. L3-L4: Mild loss of disc height and mild disc bulge with hypertrophic facet arthropathy. No central canal stenosis or foraminal narrowing. L4-L5: Well-hydrated disc and hypertrophic facet arthrosis without central canal stenosis or foraminal narrowing. L5-S1: Mild disc degeneration and broad-based posterior disc bulge with a shallow central disc protrusion and fwws-za-ixiysfop facet arthrosis. No central canal stenosis or foraminal narrowing. 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 Abnormal low-lying cord and neural placode draped over an intradural extramedullary lesion centered at the L5 level, measuring 1.5 x 2.6 x 1.9 cm in size. Given signal characteristics and history of prior surgery, this finding is suspicious for an epidermoid cyst. Diffusion-weighted imaging would be useful for correlation. Recommend followup neurosurgical consultation to guide further management. Moderate lower thoracic spondylosis with small disc protrusions, as described. Mild disc bulge and shallow central disc protrusion at the L5-S1 level with hypertrophic facet arthropathy. No central canal stenosis.
--- NOTE | ~2021-04-07 | XR_ITS ---
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 Metallic device related to mask noted on the lateral projection. No other radiopaque foreign body. XR/XR pre mri screening IMPRESSION: Linear metal strips noted related to mask on the lateral projection as above. Shunt catheter noted.
== END 2021-04-07 14:35 | disposition home or self-care (01) ==
LOC: HO.MRI 14:34
PROVIDERS: PCP Internal Medicine; Visit Provider Psychiatry & Neurology Neurology
DX: Q06.8 Other specified congenital malformations of spinal cord (principal); Q76.0 Spina bifida occulta
CPT/HCPCS: 72148

== ENCOUNTER → 2021-04-15 13:02 | Outpatient (BNVA) | payer OTHER, SELFPAY | PROVIDERS: PCP Internal Medicine; Referring Provider Internal Medicine; Visit Provider Internal Medicine Cardiovascular Disease | DX: Z01.810 Encounter for preprocedural cardiovascular examination (principal); R06.00 Dyspnea, unspecified; I10 Essential (primary) hypertension | CPT/HCPCS: 99202 ==

== ENCOUNTER → 2021-04-19 07:56 | Outpatient (BNVA) | payer OTHER, SELFPAY | PROVIDERS: PCP Internal Medicine; Visit Provider Surgery ==

== ENCOUNTER → 2021-04-21 12:27 | Outpatient (BNVA) | payer OTHER, SELFPAY | PROVIDERS: PCP Internal Medicine; Visit Provider Orthopaedic Surgery | DX: G56.03 Carpal tunnel syndrome, bilateral upper limbs (principal) | CPT/HCPCS: 99212 ==

== ENCOUNTER → 2021-04-27 08:58 | Outpatient (BNVA) | payer OTHER, SELFPAY | PROVIDERS: PCP Internal Medicine; Visit Provider Dietitian, Registered | DX: E66.01 Morbid (severe) obesity due to excess calories (principal) | CPT/HCPCS: 97802 ==

== ENCOUNTER 2021-05-14 14:35 | Outpatient (REF) | payer OTHER, SELFPAY ==
[2021-05-14 16:36] LABS: Blood Urea Nitrogen 20 mg/dL (9-16); Estimated Glomerular Filt Rate > 60
== END 2021-05-14 14:36 | disposition home or self-care (01) ==
LOC: HO.HMGCLDS 14:35
PROVIDERS: PCP Internal Medicine; Visit Provider Advanced Practice Midwife
DX: O26.899 Other specified pregnancy related conditions, unspecified trimester (principal); R51.9 Headache, unspecified; O24.119 Pre-existing type 2 diabetes mellitus, in pregnancy, unspecified trimester; E11.40 Type 2 diabetes mellitus with diabetic neuropathy, unspecified
CPT/HCPCS: 36415; 82565; 84520

== ENCOUNTER → 2021-05-18 09:33 | Outpatient (BNVA) | payer OTHER, SELFPAY | PROVIDERS: PCP Internal Medicine | DX: R35.0 Frequency of micturition (principal); N39.0 Urinary tract infection, site not specified | CPT/HCPCS: 99202 ==

== ENCOUNTER 2021-05-24 11:08 | Outpatient (REF) | payer OTHER, SELFPAY | END 2021-05-24 11:09 | disposition home or self-care (01) | LOC: HO.US 11:08 | PROVIDERS: PCP Internal Medicine; Visit Provider Surgery | DX: Z13.89 Encounter for screening for other disorder (principal) ==

== ENCOUNTER 2021-05-25 08:03 | Outpatient (REF) | payer OTHER, SELFPAY ==
--- NOTE | ~2021-05-25 | CT_ITS ---
EXAMINATION: CT ABDOMEN AND PELVIS WITH CONTRAST CLINICAL INFORMATION: Complication of IUD. COMPARISON: Previous pelvic ultrasound and x-ray February 2021. TECHNIQUE: Multidetector volumetric images were obtained from the superior aspect of the liver through the pubic symphysis following administration 85 mL of Omnipaque 350 intravenous contrast. Sagittal and coronal reformatted images were obtained on the technologist's workstation. Oral contrast: Yes This CT examination was performed using dose optimization techniques as appropriate, variously including the following: *Automated exposure control *Adjustment of mA and/or kV according to patient size (this includes techniques or standardized protocols for targeted exams where dose is matched to indication/reason for exam; i.e. extremities or head) *Use of iterative reconstruction technique DLP: 665 mGy-cm FINDINGS: LUNG BASES: The visualized lung bases are unremarkable. LIVER, GALLBLADDER, AND BILIARY TREE: There is fatty infiltration of the liver. The liver is slightly enlarged. No focal liver lesion or biliary duct dilatation. The gallbladder has been removed. PANCREAS: Unremarkable. SPLEEN: Unremarkable. ADRENAL GLANDS: Unremarkable. KIDNEYS AND URETERS: The kidneys are normal in size, shape, and attenuation. No hydronephrosis, hydroureter, or calculi seen. No perinephric stranding. BLADDER: The bladder wall is thickened and trabeculated. GASTROINTESTINAL TRACT: There is fat stranding in the small bowel mesentery. The small and large bowel are otherwise unremarkable. The appendix is unremarkable. ABDOMINAL WALL: There are 2 catheters seen. There is a catheter in the right anterior chest wall that enters the right upper quadrant with tip in the region of the gallbladder fossa. There is a catheter in the left anterior wall that enters the abdomen in the left lower quadrant and the end of the catheter is in the mid abdomen near the small bowel mesentery. There is diastasis of the rectus muscles and fat stranding in the umbilical region. There is question of a tiny umbilical hernia containing fat and small bowel. LYMPH NODES: Normal. VASCULAR: Unremarkable. PELVIC VISCERA: The uterus is slightly anteverted and to the left of midline. There is an IUD in the uterus and satisfactory position. There is a small left anterior uterine body lesion measuring 1 cm probably representing a subserosal fibroid. There is a 3 cm left adnexal cyst. Right adnexa is unremarkable. OSSEOUS STRUCTURES: There are mild degenerative changes of the spine. CT/CT abdomen pelvis w con IMPRESSION: IUD in the uterus in satisfactory position. The uterus is tilted to the right accounting for position on KUB. Thickened trabeculated bladder wall. Fatty liver. Mild nonspecific fat stranding of the small bowel mesentery. Two catheters in the abdomen. Enlarged fatty liver. Fleischner guidelines were followed.
--- NOTE | ~2021-05-25 | US_ITS ---
EXAMINATION: US COMPLETE ABDOMEN WITH LIVER ELASTOGRAPHY CLINICAL INFORMATION: Morbidly severe obesity due to excess calories. COMPARISON: None. TECHNIQUE: Real-time imaging of the abdominal viscera. Noninvasive ultrasound liver fibrosis assessment is performed using Luiza ElastPQ point quantification shear wave elastography (2D-SWE) with a C5-2 MHz transducer. Multiple elastography samples are obtained. FINDINGS: PANCREAS: The entire pancreas is obscured by overlying gas. ABDOMINAL AORTA: The distal abdominal aorta is obscured by overlying gas. The proximal and mid abdominal aorta appears of normal caliber. INFERIOR VENA CAVA: Visualized portions are normal. LIVER: Normal. The liver demonstrates normal size, contour and echogenicity. No focal lesion or intrahepatic biliary duct dilatation. The right lobe measures 13.9 cm in length. The left lobe measures 16.0 cm in length. Portal flow is hepatopedal. Shear wave liver elastography median stiffness is 1.35 m/s (reference: normal median stiffness is 1.3 m/s or less). IQR/median stiffness to assess sampling precision is 1.49 (reference: good quality data set is IQR/median stiffness of 0.15 or less). GALLBLADDER: Normal. The gallbladder is physiologically distended without evidence of stones, sludge, polyps, wall thickening or pericholecystic fluid. COMMON BILE DUCT: Normal in caliber measuring 0.55 cm in diameter. RIGHT KIDNEY: Normal. No hydronephrosis. No renal calculi or focal parenchymal lesions. The kidney measures 12.2 cm in maximum dimension. LEFT KIDNEY: Normal. No hydronephrosis. No renal calculi or focal parenchymal lesions. The kidney measures 12.7 cm in maximum dimension. SPLEEN: Normal. The spleen measures 8.5 cm in maximum dimension. FREE FLUID: None. US/US abdomen comp w elastography IMPRESSION: 1. Unremarkable complete abdominal ultrasound. 2. Liver elastography: Suboptimal exam as patient was unable to hold breath resulting in high IQR/median. REFERENCE: Society of Radiologists in Ultrasound Liver Stiffness Thresholds (2020): LIVER STIFFNESS THRESHOLDS: *Liver Stiffness equal or less than 1.3 m/s: High probability of being normal. *Liver Stiffness less than 1.7 m/s: In the absence of other known clinical signs, rules out compensated advanced chronic liver disease. *Liver Stiffness 1.7-2.1 m/s: Suggestive of compensated advanced chronic liver disease but need further test for confirmation. *Liver Stiffness over 2.1 m/s: Rules in compensated advanced chronic liver disease. *Liver Stiffness over 2.4 m/s: Suggestive of clinically significant portal hypertension. QUALITY OF DATA SET: *IQR/Median value equal or less than 0.15 implies a quality data set. *IQR/Median value over 0.15 implies a poor quality data set. SIGNIFICANT CHANGE FROM PRIOR EXAM: Significant change if liver stiffness measurement is 10% or greater from prior exam. OTHER CONSIDERATIONS: The stage of liver fibrosis may be overestimated in the setting of acute hepatitis, liver inflammation, elevated liver function tests, hepatic vascular congestion, obstructive cholestasis, non-fasting state, and infiltrative diseases such as amyloidosis and lymphoma. In some patients with NAFLD, the liver stiffness thresholds for compensated advanced chronic liver disease may be lower. In causes other than viral hepatitis and NAFLD, liver stiffness thresholds are not well established.
[2021-05-25] MEDS: iohexoL 350 MG/ML 100 ML INFUS..BTL 85 ML IV (08:51)
== END 2021-05-25 08:04 | disposition home or self-care (01) ==
LOC: HO.CT 08:03
PROVIDERS: PCP Internal Medicine; Visit Provider Advanced Practice Midwife
DX: E66.01 Morbid (severe) obesity due to excess calories (principal); E11.9 Type 2 diabetes mellitus without complications; E78.1 Pure hyperglyceridemia; I10 Essential (primary) hypertension; K21.9 Gastro-esophageal reflux disease without esophagitis; T83.39XA Other mechanical complication of intrauterine contraceptive device, initial encounter
CPT/HCPCS: 74177; 76705; 76981; Q9967

== ENCOUNTER 2021-05-27 | Outpatient (REF) | payer OTHER, SELFPAY | END 2021-05-27 00:01 | LOC: CF | PROVIDERS: Visit Provider Dietitian, Registered | DX: E66.01 Morbid (severe) obesity due to excess calories (principal); E11.40 Type 2 diabetes mellitus with diabetic neuropathy, unspecified; R06.00 Dyspnea, unspecified; I10 Essential (primary) hypertension; E78.1 Pure hyperglyceridemia; E78.5 Hyperlipidemia, unspecified; E55.9 Vitamin D deficiency, unspecified; Z71.3 Dietary counseling and surveillance; Z88.1 Allergy status to other antibiotic agents; Z88.0 Allergy status to penicillin; Z88.2 Allergy status to sulfonamides; Z88.8 Allergy status to other drugs, medicaments and biological substances | CPT/HCPCS: 97803 ==

== ENCOUNTER 2021-06-05 09:03 | Outpatient (REF) | payer OTHER, SELFPAY ==
--- NOTE | ~2021-06-05 | MM_ITS ---
EXAMINATION: MM SCREENING DIGITAL BREAST TOMOSYNTHESIS, BILATERAL CLINICAL INFORMATION: Screening. Asymptomatic. The lifetime risk of breast cancer based on the Tyrer-Cuzick Model is 10%. COMPARISON: Outside mammography: 06/05/2018 ([facility]). TECHNIQUE: Digital breast tomosynthesis is performed in both the craniocaudal and mediolateral oblique views along with computer-aided detection (CAD). Synthesized 2D images are generated from the tomosynthesis. Additional bilateral MLO views are provided. FINDINGS: There are scattered areas of fibroglandular density (ACR BI-RADS breast composition Category b). There are no significant masses, abnormal calcifications, or other abnormalities. Parenchymal pattern is similar to prior outside exam. There is no interval mass or architectural abnormality. The axilla and skin contours are unremarkable. MM/MM tomosynthesis screening BI IMPRESSION: No mammographic evidence of malignancy. ASSESSMENT: BI-RADS 1: Negative RECOMMENDATION: Routine annual mammography screening. This patient's information was entered into a reminder system with a target due date for their next mammogram.
== END 2021-06-05 09:04 | disposition home or self-care (01) ==
LOC: HO.MAMMO 09:03
PROVIDERS: PCP Internal Medicine; Visit Provider Surgery
DX: Z12.31 Encounter for screening mammogram for malignant neoplasm of breast (principal)
CPT/HCPCS: 77063; 77067

== ENCOUNTER → 2021-06-21 09:04 | Outpatient (BNVA) | payer OTHER, SELFPAY | PROVIDERS: PCP Internal Medicine; Visit Provider Physician Assistant | DX: K58.9 Irritable bowel syndrome, unspecified (principal); K21.9 Gastro-esophageal reflux disease without esophagitis; K52.9 Noninfective gastroenteritis and colitis, unspecified | CPT/HCPCS: 99212 ==

== ENCOUNTER 2021-06-22 | Outpatient (REF) | payer OTHER, SELFPAY | END 2021-06-22 00:01 | LOC: CF | PROVIDERS: PCP Internal Medicine; Visit Provider Obstetrics & Gynecology | DX: Z30.432 Encounter for removal of intrauterine contraceptive device (principal) | CPT/HCPCS: 58301 ==

== ENCOUNTER → 2021-06-24 08:13 | Outpatient (BNVA) | payer OTHER, SELFPAY | PROVIDERS: PCP Internal Medicine; Referring Provider Surgery; Visit Provider Dietitian, Registered ==

== ENCOUNTER → 2021-06-25 08:16 | Outpatient (BNVA) | payer OTHER, SELFPAY | PROVIDERS: PCP Internal Medicine; Referring Provider Surgery; Visit Provider Dietitian, Registered ==

== ENCOUNTER 2021-08-16 09:39 | Outpatient (REF) | payer OTHER, SELFPAY | END 2021-08-16 09:40 | disposition home or self-care (01) | LOC: HO.LAB 09:39 | DX: N39.0 Urinary tract infection, site not specified (principal) | CPT/HCPCS: 87086 ==

== ENCOUNTER → 2021-08-16 10:00 | Outpatient (REF) | payer OTHER, SELFPAY | LOC: HO.SL 10:00 | PROVIDERS: Visit Provider Psychiatry & Neurology Neurology | DX: N39.0 Urinary tract infection, site not specified (principal); R35.0 Frequency of micturition; G47.33 Obstructive sleep apnea (adult) (pediatric) | CPT/HCPCS: 51798; 99212 ==

== ENCOUNTER 2021-08-24 08:35 | Outpatient (REF) | payer MEDICAID, SELFPAY ==
[2021-08-24 11:46] LABS: Alanine Aminotransferase 21 U/L (0-31); Anion Gap 15 (12-20); Aspartate Amino Transferase 17 U/L (5-31); Blood Urea Nitrogen 15 mg/dL (9-16); C Reactive Protein 3.47 mg/dL (< or = 0.50); Calcium 9.3 mg/dL (8.4-10.2); Carbon Dioxide 23 mmol/L (22-29); Chloride 104 mmol/L (96-108); Cholesterol 203 mg/dL; Estimated Glomerular Filt Rate > 60; Glucose Fasting 166 mg/dL (60-99); HDL Cholesterol 45 mg/dL; LDL Cholesterol Calculated 125 mg/dl; Potassium 4.3 mmol/L (3.3-5.1); Sodium 138 mmol/L (135-145); Triglycerides 169 mg/dL
[2021-08-24 12:00] LABS: Creatinine Urine 83.07 mg/dL; Microalbum/Creatinine Ratio Ur 10.8 ug/mg cr
[2021-08-24 12:09] LABS: Vitamin D 25-OH Total 45.1 ng/mL (>30)
[2021-08-24 12:18] LABS: Folate 10.2 ng/mL (> or = 4.0); Vitamin B12 288 pg/mL (200-900)
[2021-08-24 12:28] LABS: Erythrocyte Sedimentation Rate 24 MM/HR (0-20)
== END 2021-08-24 08:36 | disposition home or self-care (01) ==
LOC: HO.HMGCLDS 08:35
PROVIDERS: Absent Provider Internal Medicine; PCP Internal Medicine; Visit Provider Physician Assistant
DX: E11.40 Type 2 diabetes mellitus with diabetic neuropathy, unspecified (principal); E55.9 Vitamin D deficiency, unspecified; E78.2 Mixed hyperlipidemia; I10 Essential (primary) hypertension; K52.9 Noninfective gastroenteritis and colitis, unspecified
CPT/HCPCS: 36415; 80048; 80061; 82043; 82306; 82607; 82746; 84450; 84460; 85652; 86140

== ENCOUNTER → 2021-09-23 08:34 | Outpatient (REF) | payer OTHER, SELFPAY ==
--- NOTE | 2021-09-23 08:38 | CA_ITS ---
Transthoracic Echocardiogram Patient (Last, First, Middle): Ramona Rangel, Gender: Female Date of : 1975 Age: 46 Procedure Date: 09/23/2021 Procedure Type: Transthoracic Echocardiogram Location: OP Height: 152.4 cm Weight: 102.06 kg BSA: 1.96 m2 Heart Rate: bpm BP: 130 / 70 mmHg Contract Assistant: SB Referring MD: Jordin Little MD Symptoms: R06.00 - Dyspnea, unspecified Study Quality: Fair Conclusions: - Normal left ventricular size and systolic function. There is mildly increased left ventricular wall thickness. The visually estimated ejection fraction is between 60-65%. - Abnormal diastolic function is noted. Spectral Doppler is indicative of a pseudonormal filling pattern. E/E prime ratio is between 8 and 15 consistent with indeterminate filling pressures. - Normal right ventricular cavity size and systolic function. Findings Left Ventricle Normal left ventricular size and systolic function. There is mildly increased left ventricular wall thickness. The visually estimated ejection fraction is between 60-65%. There is no evidence of regional wall motion abnormalities. Abnormal diastolic function is noted. Spectral Doppler is indicative of a pseudonormal filling pattern. E/E prime ratio is between 8 and 15 consistent with indeterminate filling pressures. Right Ventricle Normal right ventricular cavity size and systolic function. Atria The left atrium is normal in size. Aortic Valve The aortic valve structure and function is likely normal. There is no aortic valve stenosis. There is no aortic valve regurgitation. Mitral Valve Normal mitral valve structure and function. There is no mitral valve regurgitation. There is no mitral valve stenosis. Pulmonic Valve Normal pulmonic valve structure and function. There is no pulmonic valve regurgitation. Tricuspid Valve Normal tricuspid valve structure and function. There is trace tricuspid valve regurgitation. Tricuspid regurgitation envelope is inadequate for calculation of right ventricular systolic pressure. Indeterminate right atrial pressure. Great Vessels All visible segments of the aorta are normal in size. The visualized portions of the pulmonary artery and branches are normal. Venous The inferior vena cava was not well visualized. Pericardium/Pleural There is no evidence of pericardial effusion. Prior Study Comparison No prior study available for comparison. Measurements 2D Linear Measurements IVSd: 1.24 0.6-0.9/0.6-1.0 cm LVIDd: 4.00 3.9-5.3/4.2-5.9 cm LVIDd Index: 2.04 2.4-3.2/2.2-3.1 cm/m2 LVIDs: 2.49 2.0-3.6 cm LVPWd: 0.95 0.7-1.1 cm Ao Root: 2.70 2.1-3.5 cm LA Diam: 3.00 2.7-3.8/3.0-4.0 cm LAIDs Index: 1.53 1.5-2.3 cm/m2 LV Mass: 180.34 67-162/88-224 g LV Mass Index: 92.01 43-95/49-115 g/m2 LVOT Diam: 1.90 3.0+(-)1.3 cm 2D Systolic Function EF 4C: 56.50 >55% EF 2C: 60.00 >55% EF BiP: 59.40 >55% Mitral Valve MV Pk E: 0.80 MV PK A: 0.74 MV Decel Time: 191.00 E/A: 1.10 E'Lateral: 7.72 E'Medial: 6.31 E/E' Med: 12.70 E/E' Lat: 10.40 PHT: 56.00 MVA PHT: 3.93 Decel Vermillion: 4.19 Aortic Valve AoV Pk Nelson: 1.46 AoV Mn Nelson: 1.12 AoV VTI: 0.31 AoV Pk Grad: 9.00 Aov Mn Grad: 5.00 VIRGINIE Cont.VTI: 2.16 LVOT LVOT Pk Nelson: 1.18 LVOT Mn Nelson: 0.76 LVOT VTI: 0.23 LVOT Pk Grad: 6.00 LVOT Mn Grad: 3.00 LVOT Diam: 1.90 LVOT Area: 2.84 Diastolic Function MV Pk E: 0.80 MV Pk A: 0.74 E/A: 1.10 E'Medial: 6.31 E/E' Med: 12.70 E' Laterial: 7.72 E/E' Lat: 10.40 Great Vessels Aorta Ao Root-2D: 2.70 2.0-3.7 cm Sinus of Valsalva: 2.70 2.0-3.5 cm Ao Asc: 2.90 2.1-3.4 cm Pulmonary Veins Pulm Vein S/D 1.50 Pulmonary Valve PV Pk Nelson: 1.00 Peak PV Grad: 4.00 Updated in Other Vendor System with Status of Final Jordin Little MD electronically signed on 09/26/2021 10:49:20 PM with status of Final
--- NOTE | 2021-09-23 08:38 | CA_ITS ---
Acquisition Time: 2021-09-23 09:20:10 Total Exercise Time: 00:03:50 Test Indications: PREOP, SOB Medications: SEE CHART Protocol: MAURICE Max HR: 137 BPM 79% of Pred: 173 BPM Max BP: 146/074 mmHG Max Work Load: 5.6 METS Exercise stress test with exercise 3 min 50 sec of Maurice protocol achieving 78% MPHR with moderate sob and request to stop, no chest discomfort, with artifact during exercise without noted arrythmia, with normotensive response to exercise, with nondiagnostic EKG for ischemia due to suboptimal heart rate and exercise time. In recovery her breathing gradually normalized. Test reviewed with Dr Connell. Will order a pharmacological nuclear stress test to further evaluate for ischemia. Referred By: Jordin Little Overread By: MAIA GONSALES
== END ==
LOC: HO.CARD 08:34
PROVIDERS: PCP Internal Medicine; Visit Provider Internal Medicine Cardiovascular Disease
DX: R06.00 Dyspnea, unspecified (principal); R94.39 Abnormal result of other cardiovascular function study
CPT/HCPCS: 93017; 93306

== ENCOUNTER → 2021-09-28 16:10 | Outpatient (REF) | payer OTHER, SELFPAY | LOC: HO.SL 16:10 | PROVIDERS: PCP Internal Medicine; Visit Provider Psychiatry & Neurology Neurology | DX: G47.33 Obstructive sleep apnea (adult) (pediatric) (principal) | CPT/HCPCS: 95806 ==

== ENCOUNTER 2021-10-01 10:51 | Outpatient (REF) | payer OTHER, SELFPAY ==
[2021-10-01 15:42] LABS: Alanine Aminotransferase 15 U/L (0-31); Anion Gap 12 (12-20); Aspartate Amino Transferase 12 U/L (5-31); Blood Urea Nitrogen 15 mg/dL (9-16); Calcium 8.7 mg/dL (8.4-10.2); Carbon Dioxide 24 mmol/L (22-29); Chloride 106 mmol/L (96-108); Cholesterol 170 mg/dL; Estimated Glomerular Filt Rate > 60; Glucose Fasting 139 mg/dL (60-99); HDL Cholesterol 40 mg/dL; LDL Cholesterol Calculated 104 mg/dl; Potassium 4.4 mmol/L (3.3-5.1); Sodium 138 mmol/L (135-145); Triglycerides 134 mg/dL
[2021-10-01 15:49] LABS: Estimated Average Glucose 157 mg/dL; Hemoglobin A1c % 7.1 %
[2021-10-01 15:57] LABS: Creatinine Urine 91.24 mg/dL; Microalbum/Creatinine Ratio Ur 210.4 ug/mg cr
[2021-10-01 16:05] LABS: Vitamin D 25-OH Total 46.9 ng/mL (>30)
[2021-10-01 16:16] LABS: Folate 7.6 ng/mL (> or = 4.0); Vitamin B12 424 pg/mL (200-900)
== END 2021-10-01 10:52 | disposition home or self-care (01) ==
LOC: HO.HMGCLDS 10:51
PROVIDERS: Visit Provider Internal Medicine
DX: E11.40 Type 2 diabetes mellitus with diabetic neuropathy, unspecified (principal); E53.8 Deficiency of other specified B group vitamins; E78.2 Mixed hyperlipidemia; I10 Essential (primary) hypertension; E55.9 Vitamin D deficiency, unspecified
CPT/HCPCS: 36415; 80048; 80061; 82043; 82306; 82607; 82746; 83036; 84450; 84460

== ENCOUNTER → 2021-11-05 08:10 | Outpatient (REF) | payer OTHER, SELFPAY ==
--- NOTE | ~2021-11-05 | NM_ITS ---
Myocardial perfusion study Indication: Abnormal stress test evaluate for myocardial ischemia Technique: The patient was brought in for a Lexiscan perfusion study on 11/05/2021. Patient performed low-level exercise and was injected 0.4 mg of Lexiscan intravenously. Within a minute of injection, 40 mCi of sestamibi was given intravenously. Images were obtained using the SPECT gamma camera interlaced with the gating device. Images were obtained in supine position. Resting perfusion study was performed on 11/11/2021. Patient was administered 40 mCi of sestamibi intravenously at rest. Images were then obtained in supine position. Images obtained with and without CT attenuation. Total DLP 118 mGy-cm. Images were processed with the software and compared side to side in short axis, horizontal long axis and vertical long axis views. Findings: The stress perfusion study showed non attenuated images show minimal thinning of the basal anterior wall of the LV myocardium. Remainder of the LV myocardium normally perfused. Attenuation corrected images show mildly reduced uptake in the anterior wall of the myocardium.. The gated study shows normal LV systolic function with calculated LVEF of 71%. LV cavity is normal in size. The gated study shows normal systolic wall thickening and contraction of segments. Resting study shows nontender images show minimal thinning of the basal anterior wall of the LV myocardium. Gating at rest reveals normal systolic wall motion with ejection fraction at 71%. The findings are consistent with on attenuated images suggestive normal myocardial perfusion.. NM/NM cardiolite stress test Impression: 1. Myocardial perfusion imaging study shows likely normal myocardial perfusion 2. Gated LVEF is 71% 3. Transient ischemic dilatation not present EKG is nondiagnostic for ischemia
--- NOTE | 2021-11-05 08:13 | CA_ITS ---
Acquisition Time: 2021-11-05 08:23:24 Total Exercise Time: 00:02:00 Test Indications: Abnormal Treadmill Test Medications: LOSARTAN BUSPIRONE Protocol: LEXISCAN Max HR: 109 BPM 63% of Pred: 173 BPM Max BP: 178/100 mmHG Max Work Load: 1.0 METS Pharmacological stress test with Lexiscan injection, while sitting and kicking her legs, without anginal symptoms, without arrythmia, with normotensive response to injection, with nondiagnostic EKG for ischemia. In recovery she reported shortness of breath and feeling panicked which was treated with Aminophylline 75mg IVP to reverse Lexiscan with resolution of symptom. Nuclear images pending. Test reviewed with Dr Valdes Referred By: Christine Montero Overread By: CHRISTINE MONTERO
== END ==
LOC: HO.CARD 08:10
PROVIDERS: Visit Provider Nurse Practitioner Family
DX: R06.00 Dyspnea, unspecified (principal); R94.39 Abnormal result of other cardiovascular function study
CPT/HCPCS: 78452; 93017; A9500; J0280; J2785

== ENCOUNTER → 2021-11-23 14:09 | Outpatient (BNVA) | payer OTHER, SELFPAY | PROVIDERS: PCP Internal Medicine; Visit Provider Obstetrics & Gynecology | DX: D25.9 Leiomyoma of uterus, unspecified (principal) | CPT/HCPCS: 99212 ==

== ENCOUNTER → 2021-11-26 09:20 | Outpatient (RCR) | payer OTHER, SELFPAY ==
--- NOTE | 2020-07-21 08:20 | MHC.PT.EP ---
[facility] [place] Office [place] Office [place] Office [address] Pedro Luis Meade [address] [phone] F: [phone] F: [phone] F: [phone] F: [phone] Physical Therapy Plan of Care Date of Evaluation: 07/20/20 Date of Surgery: n/a Diagnosis: cervicalgia Assessment: Patient is a 44 year old R handed female with complex PMH who presents with s/s consistent with cervicalgia. She works with daily job demands including teaching pre-K. Patient past medical history includes shunt placement, morbid obesity, fibromylagia, hydrocephalus, spina bifida, DM. Current impairments include pain, ROM, strength, safety, independence, posture, activity tolerance and functional mobility. Functional limitations include decreased ability to work, sit/stand for longer durations, sleep, drive, lift, carry, and perform weight bearing activities.. Patient is motivated with good rehab potential. Skilled PT will address impairments and functional limitations in order to achieve goals. Frequency and Duration: The patient will be seen 2x/week for 5 weeks Short Term Goals: I with HEP - 2 weeks centralize s/s - 3 weeks cervical rotation - 60 b/l - 3 weeks Penitentiary Goals: I with self centralization - 5 week NPDI 20% or less - 5 weeks Treatment Plan: Modalities to reduce pain, spasms and effusion. Manual therapy to restore motion and function. Therapeutic exercise to improve strength and flexibility. Neuromuscular re-education for posture and balance. Therapeutic activities to return to functional activities of daily living. Electronically signed by: Gigi Ross, PT Please sign and return to therapist. Thank you for your referral.
--- NOTE | 2020-09-04 10:41 | MHC.PT.DC ---
[facility] [place] Office [place] Office [place] Office [address] Pedro Luis Meade [address] [phone] F: [phone] F: [phone] F: [phone] F: [phone] Physical Therapy Discharge Report Diagnosis: cervicalgia Date of Surgery: n/a Date of Evaluation: 07/20/20 Date of Discharge: 09/04/20 Treatments to Date: 9 Cancellations to Date: 0 No Shows to Date: 0 Discharge Status: Independent with HEP Discharge Summary: We have established optimal HEP And pt will continue with this exclusively as she would like to transition care for plantar fasciitis Electronically signed by: Gigi Ross PT Please sign and return to therapist. Thank you for your referral.
== END | disposition home or self-care (01) ==
LOC: HO.PTCHIC 07-20 07:03
PROVIDERS: PCP Internal Medicine; Visit Provider Internal Medicine
DX: M54.2 Cervicalgia (principal)
CPT/HCPCS: 87086; 97110; 97140; 97162

== ENCOUNTER 2021-12-30 09:29 | Outpatient (REF) | payer OTHER, SELFPAY ==
[2021-12-30 11:55] LABS: ~Hepatitis B Surface Antibody NONREACTIVE (Nonreactive)
[2022-01-01 13:52] LABS: TS Negative Control Passed; TS Panel A 0; TS Panel B 1; TS Positive Control Passed; TSpotTB Negative (Negative)
[2022-01-03 19:17] LABS: Rubella IgG Antibody 2.03 Index
== END 2021-12-30 09:30 | disposition home or self-care (01) ==
LOC: HO.HMGCLDS 09:29
PROVIDERS: PCP Internal Medicine; Visit Provider Internal Medicine
DX: Z01.84 Encounter for antibody response examination (principal); Z11.1 Encounter for screening for respiratory tuberculosis; Z78.9 Other specified health status
CPT/HCPCS: 36415; 86481; 86706; 86735; 86762; 86765

== ENCOUNTER → 2022-03-30 15:43 | Outpatient (BNVA) | payer OTHER, SELFPAY | PROVIDERS: PCP Internal Medicine; Referring Provider Internal Medicine; Visit Provider Internal Medicine Cardiovascular Disease | DX: Z01.810 Encounter for preprocedural cardiovascular examination (principal); I10 Essential (primary) hypertension; Z79.899 Other long term (current) drug therapy | CPT/HCPCS: 93005; 99212 ==